=== PATIENT | male | born 1970 | race Caucasian/White ===

== ENCOUNTER 2018-10-30 14:30 | Inpatient (IN) | payer SELFPAY ==
[2018-10-30 14:57] LABS: BASOPHILS % (AUTO) 2.7 % (0.0-5.0); EOSINOPHILS % (AUTO) 0.6 % (0.0-8.0); LYMPHOCYTES % (AUTO) 39.2 % (21.0-51.0); MEAN CORPUSCULAR HEMOGLOBIN 35.1 pg (27.0-33.0); MEAN CORPUSCULAR HGB CONC 34.9 g/dL (32.0-36.0); MEAN CORPUSCULAR VOLUME 100.7 fL (79-99); MONOCYTES % (AUTO) 9.6 % (3.0-13.0); NEUTROPHILS % (AUTO) 47.9 % (40.0-77.0); PLATELET COUNT (AUTO) 150 K/uL (130-400); RED BLOOD CELL COUNT(AUTO) 3.97 MIL/uL (4.50-6.20); RED CELL DISTRIBUTION WIDTH 13.7 % (11.0-15.5); WHITE BLOOD COUNT (AUTO) 4.2 K/uL (4.8-10.8)
[2018-10-30] MEDS ORDERED: ONDANSETRON HCL 4 MG/2 ML VIAL ONE ×2 (15:03→16:00)
[2018-10-30 15:06] LABS: CREATININE 1.1 mg/dL (0.5-1.5); POTASSIUM 4.4 mmol/L (3.5-5.1)
[2018-10-30 15:11] LABS: ALBUMIN 4.2 g/dL (3.5-5.0); BILIRUBIN,TOTAL 1.7 mg/dL (0.2-1.0); TOTAL PROTEIN, SERUM 8.2 g/dL (6.0-8.3)
[2018-10-30] MEDS ORDERED: SODIUM CHLORIDE 0.9% 1000ML 2,000 ML IV ONE (16:00)
[2018-10-30] MEDS ORDERED: THIAMINE HCL 100 MG/ML 2ML VIAL ONE (16:00)
[2018-10-30] MEDS ORDERED: LORAZEPAM 2 MG/ML 1 ML VIAL ONE ×3 (16:01→20:49)
[2018-10-30] MEDS ORDERED: M.V.I. IV [ADULT] 10 ML VIAL IV ONE (16:02)
[2018-10-30] MEDS ORDERED: FOLIC ACID 5 MG/ML 10 ML VIAL ONE (16:02)
[2018-10-30 16:08] LABS: MAGNESIUM 0.9 mg/dL (1.80-2.40)
[2018-10-30] MEDS ORDERED: MAGNESIUM 2GM PREMIX 50ML 50 ML IV ONE (16:45)
[2018-10-30] MEDS ORDERED: KETOROLAC TROMETHAMINE 30MG/ML ONE (16:58)
[2018-10-30] MEDS ORDERED: ONDANSETRON HCL 4 MG/2 ML VIAL IV PRN (18:00)
[2018-10-30] MEDS: LEVOFLOXACIN 500 MG/D5W 100 ML 100 ML IV SCH (18:00)
[2018-10-30] MEDS ORDERED: ACETAMINOPHEN 325 MG TAB PO PRN (18:00)
[2018-10-30] MEDS ORDERED: SODIUM CHLORIDE 0.9% 1000ML 1,000 ML IV ONE (20:48)
[2018-10-30] MEDS ORDERED: CHLORDIAZEPOXIDE HCL 25 MG CAP ONE (20:49)
[2018-10-30] MEDS ORDERED: LEVOFLOXACIN 500 MG/D5W 100 ML 100 ML ONE (20:49)
[2018-10-30] MEDS ORDERED: FAMOTIDINE/PF 20 MG/2 ML VIAL IV ONE (20:50)
[2018-10-30] MEDS: FAMOTIDINE/PF 20 MG/2 ML VIAL IV SCH (21:00)
[2018-10-30] MEDS ORDERED: CHLORDIAZEPOXIDE HCL 25 MG CAP PO ONE (21:00)
[2018-10-30] MEDS ORDERED: PRIM50TA29 PO (23:07)
[2018-10-30 23:12] VITALS: BP 145/115
[2018-10-30] MEDS ORDERED: PROM25TA7 PO (23:14)
[2018-10-30] MEDS ORDERED: LISI-613 PO (23:14)
[2018-10-30] MEDS ORDERED: OMEP40CA37 PO (23:14)
[2018-10-30] MEDS ORDERED: IBUP-2077 PO (23:14)
[2018-10-30] MEDS ORDERED: METO50TA18 PO (23:14)
[2018-10-31] MEDS: KETOROLAC TROMETHAMINE 30MG/ML IV PRN ×4 (00:38→23:36)
[2018-10-31] MEDS ORDERED: PROMETHAZINE HCL 25 MG TABLET PO PRN (01:15)
[2018-10-31] MEDS ORDERED: DIAZEPAM 5 MG TABLET ONE (01:43)
[2018-10-31] MEDS: SODIUM CHLORIDE 0.9% 1000ML 1,000 ML IV SCH ×3 (01:50→23:27)
[2018-10-31 05:05] VITALS: BP 149/92
[2018-10-31 05:28] LABS: HEMATOCRIT 34.6 % (42-54); MEAN CORPUSCULAR HEMOGLOBIN 35.1 pg (27.0-33.0); MEAN CORPUSCULAR HGB CONC 34.4 g/dL (32.0-36.0); MEAN CORPUSCULAR VOLUME 102.1 fL (79-99); NUCLEATED RED BLOOD CELLS 0.1 % (0.0-0.19); PLATELET COUNT (AUTO) 93 K/uL (130-400); RED BLOOD CELL COUNT(AUTO) 3.39 MIL/uL (4.50-6.20); RED CELL DISTRIBUTION WIDTH 13.7 % (11.0-15.5)
[2018-10-31 05:29] LABS: CREATININE 1.6 mg/dL (0.5-1.5); POTASSIUM 4.7 mmol/L (3.5-5.1)
[2018-10-31 08:00] VITALS: BP 163/124
[2018-10-31] MEDS: FAMOTIDINE/PF 20 MG/2 ML VIAL IV SCH ×2 (09:10→21:52)
[2018-10-31] MEDS: CHLORDIAZEPOXIDE HCL 25 MG CAP PO SCH ×3 (09:10→21:52)
[2018-10-31] MEDS: DIAZEPAM 5 MG TABLET PO SCH ×3 (09:10→21:53)
[2018-10-31] MEDS: LORAZEPAM 2 MG/ML 1 ML VIAL IVP PRN ×4 (09:10→23:29)
[2018-10-31] MEDS: METOPROLOL TARTRATE 50 MG TAB PO SCH ×2 (09:10→21:53)
[2018-10-31] MEDS: LISINOPRIL 20 MG TABLET PO SCH (09:10)
[2018-10-31] MEDS: PANTOPRAZOLE SODIUM 40 MG TABLET.DR PO SCH (09:11)
[2018-10-31] MEDS: M.V.I. IV [ADULT] 10 ML, FOLIC ACID 1 MG, THIAMINE HCL 100 MG in SODIUM CHLORIDE 0.9% 1... IV SCH (10:10)
[2018-10-31 12:00] VITALS: BP 153/108
[2018-10-31] MEDS ORDERED: MAGNESIUM 2GM PREMIX 50ML 50 ML IV SCH (13:45)
--- NOTE | 2018-10-31 14:49 | NUR ---
YONI VALLEJO DONE ALONE AAOX3, IN WITHDRAWAL FOR HEAVY ALCOHOL USE; EMPLOYED , ANXIOUS TO KEEP JOB- INDEPENDENT, NO DME NO HH NO PROVIDER; WILL FOLLOW NEEDED Addendum: 10/31/18 at 1458 by SAUL SUAREZ RN CM Amended: Links added.
[2018-10-31 16:00] VITALS: BP 161/101
[2018-10-31] MEDS: LEVOFLOXACIN 500 MG/D5W 100 ML 100 ML IV SCH (17:35)
[2018-10-31 20:00] VITALS: BP 152/86
[2018-10-31] MEDS: PRIMIDONE 50 MG TAB PO SCH (21:52)
[2018-11-01] VITALS (7 sets, daily range): BP systolic 126–167; BP diastolic 82–111
[2018-11-01] MEDS ORDERED: CLONIDINE HCL 0.1 MG TABLET PO PRN ×3 (00:15→04:45)
--- NOTE | 2018-11-01 00:15 | NUR ---
B/P 152/109 & REPEAT 165/106, PULSE 80, [facility] WAS CALLED AND ORDER GIVEN FOR CLONIDINE Q6HRS PRN. PATIENT CONTINUES WITH BODY TREMORS HE IS GOING THROUGH ALCOHOL WITHDRAWAL, BUT IS AAOX3 AND CALM, COOPERATIVE WITH STAFF. MILD DIAPHORESIS, BUT AFEBRILE.
[2018-11-01] MEDS ORDERED: CLONIDINE HCL 0.1 MG TABLET ONE (00:16)
--- NOTE | 2018-11-01 01:45 | NUR ---
BLOOD PRESSURE DOWN TO 138/86, PULSE 76 AFTER CLONIDINE ADMINISTRATION. MED EFFECTIVE.
--- NOTE | 2018-11-01 03:15 | NUR ---
PATIENT VERY DIAPHORETIC AND WITH NOTED SHORT-LASTING CONFUSION/DIRORIENTATION, ASKING WHERE HE WAS AND WHAT WAS HE DOING HERE. HE WAS RE-ORIENTED. HE WAS ALSO NOTED TO HAVE INCREASED BODY TREMORS HE CONTINUES GOING THROUGH ALCOHOL WITHDRAWAL. WITHDRAWAL ASSESSMENT SCORE 23, ATIVAN IV GIVEN.
[2018-11-01] MEDS: LORAZEPAM 2 MG/ML 1 ML VIAL IVP PRN ×3 (03:16→22:04)
--- NOTE | 2018-11-01 04:20 | NUR ---
B/P LEFT-163/115 & RIGHT-158/111, PULSE MID 70'S. [facility] WAS CALLED AGAIN AND ORDER GIVEN TO CHANGE CLONIDINE TO Q4HRS PRN.
[2018-11-01] MEDS: KETOROLAC TROMETHAMINE 30MG/ML IV PRN (06:47)
[2018-11-01 07:42] LABS: HEMATOCRIT 33.1 % (42-54); MEAN CORPUSCULAR HEMOGLOBIN 34.8 pg (27.0-33.0); MEAN CORPUSCULAR HGB CONC 34.4 g/dL (32.0-36.0); MEAN CORPUSCULAR VOLUME 101.3 fL (79-99); NUCLEATED RED BLOOD CELLS 0.1 % (0.0-0.19); PLATELET COUNT (AUTO) 70 K/uL (130-400); RED BLOOD CELL COUNT(AUTO) 3.26 MIL/uL (4.50-6.20); RED CELL DISTRIBUTION WIDTH 13.8 % (11.0-15.5); WHITE BLOOD COUNT (AUTO) 4.5 K/uL (4.8-10.8)
[2018-11-01 07:48] LABS: CREATININE 1.5 mg/dL (0.5-1.5); MAGNESIUM 1.1 mg/dL (1.80-2.40); POTASSIUM 4.5 mmol/L (3.5-5.1)
--- NOTE | 2018-11-01 08:00 | NUR ---
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 D FOR ETOH. URING IA YESTERDAY PT STATES HAS GOOD SUPPORT THROUGH [employer] AND KNOWS HOW TO ACCESS SELF HELP AND RECOVERY GROUPS IN THE AREA. WILL DOCUEMNT, BUT NO REVISIT FOR THIS THIS RES
[2018-11-01] MEDS ORDERED: AMLODIPINE BESYLATE 5 MG TAB PO SCH (09:00)
[2018-11-01] MEDS: AMLODIPINE BESYLATE 5 MG TAB PO SCH (09:21)
[2018-11-01] MEDS: PANTOPRAZOLE SODIUM 40 MG TABLET.DR PO SCH (09:22)
[2018-11-01] MEDS: DIAZEPAM 5 MG TABLET PO SCH ×3 (09:23→21:05)
[2018-11-01] MEDS: FAMOTIDINE/PF 20 MG/2 ML VIAL IV SCH ×2 (09:24→21:03)
[2018-11-01] MEDS: METOPROLOL TARTRATE 50 MG TAB PO SCH ×2 (09:24→21:04)
[2018-11-01] MEDS: LISINOPRIL 20 MG TABLET PO SCH (09:24)
[2018-11-01] MEDS ORDERED: CHLORDIAZEPOXIDE HCL 25 MG CAP ONE (09:41)
[2018-11-01] MEDS: M.V.I. IV [ADULT] 10 ML, FOLIC ACID 1 MG, THIAMINE HCL 100 MG in SODIUM CHLORIDE 0.9% 1... IV SCH (09:46)
[2018-11-01] MEDS ORDERED: GADODIAMIDE 5 MMOL/10 ML VIAL 5 MMOL/10 ML ML IV ONE (13:00)
--- NOTE | 2018-11-01 14:00 | NUR ---
PER DR SCHWARZ, NOTIFY OF ANY ABNORMAL FINDINGS OF MRI MRA, AND TO TAPER SLOW ON BENZO.
[2018-11-01] MEDS: CHLORDIAZEPOXIDE HCL 25 MG CAP PO SCH ×2 (14:27→21:04)
[2018-11-01] MEDS: LEVOFLOXACIN 500 MG/D5W 100 ML 100 ML IV SCH (16:06)
--- NOTE | 2018-11-01 16:41 | NUR ---
Nutrition intervention: Nutrition notification for alcohol abuse. Pt admitted for etoh withdraws, seizures. Currently on regular diet with improved po intake. Pt states he feels much better and plans to keep alcohol free for the better of his health and his marriage. Pt with no nutritional questions or concerns at this time. Pt receiving Thiamin and Folic acid via IV multivitamin. Please consult RD if additional nutrition concerns arise. LBM 10/31. Alb 4.2.
[2018-11-01] MEDS: ACETAMINOPHEN-CODEINE 300/30MG TAB PO PRN ×2 (17:06→23:08)
[2018-11-01] MEDS: PRIMIDONE 50 MG TAB PO SCH (21:05)
[2018-11-02] MEDS: LORAZEPAM 2 MG/ML 1 ML VIAL IVP PRN ×2 (02:14→10:53)
[2018-11-02 03:00] VITALS: BP 144/94
--- NOTE | 2018-11-02 03:00 | NUR ---
Med effect: Ativan Checked pt noted sleeping at this time,snoring with even breathing.
[2018-11-02] MEDS: ACETAMINOPHEN-CODEINE 300/30MG TAB PO PRN (06:24)
[2018-11-02 08:00] VITALS: BP 126/79
[2018-11-02] MEDS: M.V.I. IV [ADULT] 10 ML, FOLIC ACID 1 MG, THIAMINE HCL 100 MG in SODIUM CHLORIDE 0.9% 1... IV SCH (09:00)
[2018-11-02] MEDS: CHLORDIAZEPOXIDE HCL 25 MG CAP PO SCH (10:26)
[2018-11-02] MEDS: DIAZEPAM 5 MG TABLET PO SCH (10:26)
[2018-11-02] MEDS: PANTOPRAZOLE SODIUM 40 MG TABLET.DR PO SCH (10:26)
[2018-11-02] MEDS: METOPROLOL TARTRATE 50 MG TAB PO SCH (10:26)
[2018-11-02] MEDS: LISINOPRIL 20 MG TABLET PO SCH (10:26)
[2018-11-02] MEDS: AMLODIPINE BESYLATE 5 MG TAB PO SCH (10:27)
[2018-11-02] MEDS: FAMOTIDINE/PF 20 MG/2 ML VIAL IV SCH (10:29)
[2018-11-02] MEDS: KETOROLAC TROMETHAMINE 30MG/ML IV PRN (10:54)
[2018-11-02 12:22] VITALS: BP 150/109
[2018-11-02] MEDS ORDERED: DIAZEPAM 5 MG TABLET PO PRN (15:15)
== END 2018-11-02 17:25 | disposition home or self-care (01) | DRG 101 ==
LOC: EDH 14:30 → EDHIP 14:31 → OBSVTOIN 14:31 → EDH 16:19 → 3CH 22:13
PROVIDERS: ADMIT Hospitalist; ATTEND Hospitalist
DX: R56.9 Unspecified convulsions (principal); F10.239 Alcohol dependence with withdrawal, unspecified; R74.0 Nonspecific elevation of levels of transaminase and lactic acid dehydrogenase [LDH]; I10 Essential (primary) hypertension; Z23 Encounter for immunization
CPT/HCPCS: 36415; 70450; 70544; 70551; 76705; 80048; 80053; 83735; 85025; 85027; 93005; A9579; G0378; G0480; J1885; J1956; J2060; J2405; J3411; J3475; J3490; J7030

== ENCOUNTER 2018-11-20 11:23 | Emergency (ER) | payer OTHER ==
[~2018-11-20 11:23] MED LIST: IBUP-2077 PO; LISI-613 PO; METO50TA18 PO; OMEP40CA37 PO; PRIM50TA29 PO; PROM25TA7 PO
[2018-11-20] MEDS ORDERED: DiphenhydrAMINE HCL 50 MG/ML VIAL ONE (12:17)
[2018-11-20] MEDS ORDERED: SODIUM CHLORIDE 0.9% 1000ML 1,000 ML IV ONE (12:27)
[2018-11-20] MEDS ORDERED: THIAMINE HCL 100 MG/ML 2ML VIAL ONE (12:27)
[2018-11-20] MEDS ORDERED: M.V.I. IV [ADULT] 10 ML VIAL IV ONE (12:28)
[2018-11-20] MEDS ORDERED: CLONIDINE HCL 0.1 MG TABLET ONE (13:29)
== END 2018-11-20 13:55 | disposition home or self-care (01) ==
LOC: EDH 11:23
DX: F10.230 Alcohol dependence with withdrawal, uncomplicated (principal); I10 Essential (primary) hypertension; K21.9 Gastro-esophageal reflux disease without esophagitis; Y90.9 Presence of alcohol in blood, level not specified; Z87.891 Personal history of nicotine dependence
CPT/HCPCS: 96365; 96375; 99283; J1200; J3411; J7030

== ENCOUNTER 2020-06-30 02:11 | Inpatient (IN) | payer SELFPAY ==
[~2020-06-30] VITALS: Ht 177.8 cm; Wt 105.1 kg
[~2020-06-30 02:11] MED LIST changes: +OMEP40CA13 PO; -OMEP40CA37 PO
[2020-06-30] MEDS ORDERED: ONDANSETRON HCL 4 MG/2 ML VIAL ONE ×4 (02:33→13:46)
[2020-06-30] MEDS ORDERED: LORAZEPAM 2 MG/ML 1 ML VIAL ONE ×8 (02:33→22:23)
[2020-06-30] MEDS ORDERED: CHLORDIAZEPOXIDE HCL 25 MG CAP ONE ×5 (02:33→23:21)
[2020-06-30 02:37] LABS: BASOPHILS % (AUTO) 1.1 % (0.0-5.0); EOSINOPHILS % (AUTO) 0.7 % (0.0-8.0); HEMATOCRIT 42.8 % (42-54); LYMPHOCYTES % (AUTO) 25.2 % (21.0-51.0); MEAN CORPUSCULAR HEMOGLOBIN 28.8 pg (27.0-33.0); MEAN CORPUSCULAR HGB CONC 33.2 g/dL (32.0-36.0); MEAN CORPUSCULAR VOLUME 86.8 fL (79-99); MONOCYTES % (AUTO) 12.4 % (3.0-13.0); NEUTROPHILS % (AUTO) 60.3 % (40.0-77.0); PLATELET COUNT (AUTO) 171 K/uL (130-400); RED BLOOD CELL COUNT(AUTO) 4.93 MIL/uL (4.50-6.20); WHITE BLOOD COUNT (AUTO) 6.2 K/uL (4.8-10.8)
[2020-06-30 02:48] LABS: CREATININE 1.4 mg/dL (0.5-1.5); POTASSIUM 3.8 mmol/L (3.5-5.1)
[2020-06-30 02:50] LABS: INR 0.96 (0.85-1.15); PARTIAL THROMBOPLASTIN TIME 21.9 SEC (26.3-35.5); PROTHROMBIN TIME 10.4 SEC (9.6-11.6)
[2020-06-30 02:52] LABS: TOTAL PROTEIN, SERUM 8.2 g/dL (6.0-8.3)
[2020-06-30 04:05] LABS: APPEARANCE,URINE Clear (CLEAR); BILIRUBIN,URINE Negative (NEGATIVE); COLOR,URINE Dark Yellow (YELLOW); GLUCOSE, URINE (UA) Negative (NEGATIVE); KETONES,URINE Negative (NEGATIVE); LEUKOCYTE ESTERASE ,URINE Trace (NEGATIVE); NITRATE,URINE Negative (NEGATIVE); OCCULT BLOOD,URINE Negative (NEGATIVE); PH,URINE 7.5 (5.0-8.0); PROTEIN,URINE POS 2+ mg/dL (NEGATIVE)
[2020-06-30 04:18] LABS: BACTERIA,URINE None Seen /HPF (None Seen); MUCUS,URINE Moderate LPF (None Seen); RBC,URINE 0-1 /HPF (0-1); SQUAMOUS EPITHELIAL CELL,UR Few /HPF (0-2)
[2020-06-30] MEDS ORDERED: ONDANSETRON HCL 4 MG/2 ML VIAL IV PRN (05:30)
[2020-06-30] MEDS ORDERED: ACETAMINOPHEN 325 MG TAB PO PRN ×2 (05:30)
[2020-06-30] MEDS ORDERED: THIAMINE HCL 100 MG/ML 2ML VIAL ONE (05:49)
[2020-06-30] MEDS ORDERED: M.V.I. IV [ADULT] 10 ML VIAL IV ONE ×2 (05:50→05:54)
[2020-06-30] MEDS ORDERED: FOLIC ACID 5 MG/ML 10 ML VIAL ONE (05:52)
[2020-06-30] MEDS ORDERED: PROMETHAZINE HCL 25 MG TABLET ONE (07:51)
[2020-06-30] MEDS ORDERED: FAMOTIDINE 20MG TAB 20 MG TAB PO SCH (09:00)
[2020-06-30] MEDS ORDERED: M.V.I. IV [ADULT] 10 ML, FOLIC ACID 1 MG, THIAMINE HCL 100 MG in SODIUM CHLORIDE 0.9% 1... IV SCH (09:00)
[2020-06-30] MEDS ORDERED: FAMOTIDINE 20MG TAB 20 MG TAB ONE (09:47)
--- NOTE | 2020-06-30 13:00 | NUR ---
patient admitt for ETOH withdrawal- discussed dcp at bedside w/patient States has been a heavy drinker about 10 years,m but has been sober for>1.5 years, recently -heavy binge ++for last two weeks, can't drink anymore; patient is shaking, sweaty and appear apprehensive, states wants to dc to home when safe to do so-has good support system to help with sobriety. States self employed, indpendent, active, lives with spouse who is also supportive, dcp to home, SW alerted to follow up when withdrawal symptoms are better managed. Addendum: 06/30/20 at 2136 by SAUL SUAREZ RN Amended: Links added.
[2020-06-30] MEDS ORDERED: LISINOPRIL 5 MG TABLET ONE (15:04)
[2020-06-30] MEDS ORDERED: METOPROLOL TARTRATE 50 MG TAB ONE (15:04)
[2020-06-30] MEDS ORDERED: CHLORDIAZEPOXIDE HCL 25 MG CAP PO PRN (17:00)
[2020-06-30] MEDS ORDERED: LORAZEPAM 2 MG/ML 1 ML VIAL IVP PRN (17:00)
[2020-06-30] MEDS ORDERED: PHARMACY COMMUNICATION MISC PRN (17:00)
[2020-06-30] MEDS ORDERED: METOPROLOL TARTRATE 50 MG TAB PO SCH (21:00)
[2020-06-30] MEDS ORDERED: METOPROLOL TARTRATE 25 MG TAB ONE (23:20)
[2020-07-01 01:16] VITALS: BP 166/112
[2020-07-01] MEDS ORDERED: HYDRALAZINE HCL 20 MG/ML VIAL ONE (01:18)
--- NOTE | 2020-07-01 01:29 | NUR ---
AMA PATIENT AWAKE AND ALERT. VOICES ALL NEEDS. DENIES THE NEED TO BE AT THE HOSPITAL. SARAH FORMED SIGNED. SECURITY HERE TO ESCORT PATIENT TO ER DEPARTMENT. SPOUSE AND MD AWARE. Addendum: 07/01/20 at [address]RE[address]ER RN RN Amended: Links added.
[2020-07-01] MEDS ORDERED: HYDRALAZINE HCL 20 MG/ML VIAL IV PRN (01:30)
[2020-07-01] MEDS ORDERED: LISINOPRIL 20 MG TABLET PO SCH (09:00)
== END 2020-07-01 01:30 | disposition left against medical advice (07) | DRG 641 ==
LOC: EDH 02:11 → EDHIP 02:12 → 3BH 23:54
PROVIDERS: ADMIT Internal Medicine; ATTEND Internal Medicine
DX: E87.2 Acidosis (principal); F10.239 Alcohol dependence with withdrawal, unspecified; E86.0 Dehydration; R25.1 Tremor, unspecified; Y90.6 Blood alcohol level of 120-199 mg/100 ml; G40.909 Epilepsy, unspecified, not intractable, without status epilepticus; I10 Essential (primary) hypertension; K21.9 Gastro-esophageal reflux disease without esophagitis
CPT/HCPCS: 36415; 80053; 81001; 82550; 83605; 83690; 84484; 85025; 85610; 85730; 93005; G0378; J0360; J2060; J2405; J3411; J3490; J7030; Q0169

== ENCOUNTER 2020-09-26 21:41 | Inpatient (IN) | payer OTHER ==
[~2020-09-26] VITALS: Ht 177.8 cm; Wt 98.2 kg
[2020-09-26 21:57] LABS: BASOPHILS % (AUTO) 0.9 % (0.0-5.0); EOSINOPHILS % (AUTO) 4.5 % (0.0-8.0); HEMATOCRIT 43.1 % (42-54); LYMPHOCYTES % (AUTO) 48.5 % (21.0-51.0); MEAN CORPUSCULAR HEMOGLOBIN 28.4 pg (27.0-33.0); MEAN CORPUSCULAR HGB CONC 32.9 g/dL (32.0-36.0); MEAN CORPUSCULAR VOLUME 86.2 fL (79-99); NEUTROPHILS % (AUTO) 36.7 % (40.0-77.0); PLATELET COUNT (AUTO) 369 K/uL (130-400); RED CELL DISTRIBUTION WIDTH 16.5 % (11.0-15.5); WHITE BLOOD COUNT (AUTO) 7.8 K/uL (4.8-10.8)
[2020-09-26] MEDS ORDERED: LORAZEPAM 2 MG/ML 1 ML VIAL ONE (22:07)
[2020-09-26] MEDS ORDERED: THIAMINE HCL 100 MG/ML 2ML VIAL ONE (22:08)
[2020-09-26] MEDS ORDERED: M.V.I. IV [ADULT] 10 ML VIAL IV ONE (22:09)
[2020-09-26] MEDS ORDERED: FOLIC ACID 5 MG/ML 10 ML VIAL ONE (22:10)
[2020-09-26 22:13] LABS: INR 1.02 (0.85-1.15); PROTHROMBIN TIME 10.9 SEC (9.6-11.6)
[2020-09-26 22:14] LABS: PARTIAL THROMBOPLASTIN TIME 21.6 SEC (26.3-35.5)
[2020-09-26 22:17] LABS: CREATININE 1.4 mg/dL (0.5-1.5); POTASSIUM 3.8 mmol/L (3.5-5.1)
[2020-09-26 22:22] LABS: ALBUMIN 4.6 g/dL (3.5-5.0); BILIRUBIN,TOTAL 0.7 mg/dL (0.2-1.0); TOTAL PROTEIN, SERUM 8.9 g/dL (6.0-8.3)
[2020-09-26 23:37] LABS: APPEARANCE,URINE Clear (CLEAR); BILIRUBIN,URINE Negative (NEGATIVE); COLOR,URINE Yellow (YELLOW); GLUCOSE, URINE (UA) Negative (NEGATIVE); KETONES,URINE 40 mg/dL (NEGATIVE); LEUKOCYTE ESTERASE ,URINE Negative (NEGATIVE); NITRATE,URINE Negative (NEGATIVE); OCCULT BLOOD,URINE Trace (NEGATIVE); PH,URINE 5.5 (5.0-8.0); PROTEIN,URINE 300 mg/dL (NEGATIVE)
[2020-09-26 23:43] LABS: AMPHET/METH SCREEN,URINE NEGATIVE (NEGATIVE); BARBITURATE SCREEN, URINE NEGATIVE (NEGATIVE); BENZODIAZEPINES SCREEN,URINE NEGATIVE (NEGATIVE); CANNABINOID SCREEN,URINE POSITIVE (NEGATIVE); COCAINE SCREEN,URINE NEGATIVE (NEGATIVE); OPIATE SCREEN,URINE NEGATIVE (NEGATIVE); PHENCYCLIDINE SCREEN,URINE NEGATIVE (NEGATIVE)
[2020-09-26 23:56] LABS: BACTERIA,URINE None Seen /HPF (None Seen); RBC,URINE None Seen /HPF (0-1); SQUAMOUS EPITHELIAL CELL,UR Rare /HPF (0-2); WBC,URINE None Seen /HPF (0-1)
[2020-09-27] MEDS ORDERED: FAMOTIDINE/PF 20 MG/2 ML VIAL IV ONE ×2 (00:03→09:34)
[2020-09-27] MEDS ORDERED: LORAZEPAM 2 MG/ML 1 ML VIAL ONE ×4 (00:03→16:57)
[2020-09-27] MEDS ORDERED: ACETAMINOPHEN 325 MG TAB PO PRN ×2 (02:30)
[2020-09-27] MEDS ORDERED: ONDANSETRON HCL 4 MG/2 ML VIAL IV PRN (02:30)
[2020-09-27] MEDS ORDERED: CHLORDIAZEPOXIDE HCL 25 MG CAP PO PRN (02:30)
[2020-09-27] MEDS ORDERED: LORAZEPAM 2 MG/ML 1 ML VIAL IVP PRN (02:30)
[2020-09-27] MEDS: SODIUM CHLORIDE 0.9% 1000ML 1,000 ML IV SCH ×2 (05:40→20:57)
[2020-09-27] MEDS ORDERED: ONDANSETRON HCL 4 MG/2 ML VIAL ONE (07:46)
[2020-09-27] MEDS ORDERED: CHLORDIAZEPOXIDE HCL 25 MG CAP ONE ×2 (07:47→13:54)
[2020-09-27] MEDS: FAMOTIDINE/PF 20 MG/2 ML VIAL IV SCH ×2 (09:00→20:58)
[2020-09-27] MEDS ORDERED: M.V.I. IV [ADULT] 10 ML, FOLIC ACID 1 MG, THIAMINE HCL 100 MG in SODIUM CHLORIDE 0.9% 1... IV SCH (09:00)
[2020-09-27] MEDS ORDERED: THIAMINE HCL IV SCH (10:22)
[2020-09-27] MEDS ORDERED: SODIUM CHLORIDE 0.9% IV SCH (10:22)
[2020-09-27] MEDS ORDERED: FOLIC ACID IV SCH (10:22)
[2020-09-27] MEDS ORDERED: MULTIVITAMIN TABLET PO SCH (10:24)
[2020-09-27] MEDS: CHLORDIAZEPOXIDE HCL 25 MG CAP PO SCH ×3 (13:15→20:58)
[2020-09-27 17:57] VITALS: BP 156/115
[2020-09-27 20:07] VITALS: BP 141/103
[2020-09-27] MEDS ORDERED: METOPROLOL TARTRATE 25 MG TAB PO SCH (21:00)
--- NOTE | 2020-09-27 21:00 | NUR ---
MEDS SHIFT ASSESSMENT DONE, PLEASE REFER TO CHART. DUE MEDS ADMINISTERED, TOLERATED WELL. KEPT RESTED AND COMFORTABLE IN BED. CALL LIGHT WITHIN REACH. WILL MONITOR PT. Addendum: 09/28/20 at 0031 by NEPTALI BARRIOS RN RN Amended: Links added.
[2020-09-27] MEDS: LORAZEPAM 2 MG/ML 1 ML VIAL IVP PRN (21:35)
--- NOTE | 2020-09-27 21:35 | NUR ---
ATIVAN PT HAS INTERMITTENT JERKING AND SOME TREMORS. PT VERBALIZES A LOT OF ANXIETY. MEDICATED WITH ATIVAN IV. KEPT RESTED IN BED. WILL MONITOR CLOSELY.
[2020-09-27 23:27] VITALS: BP 163/121
--- NOTE | 2020-09-27 23:30 | NUR ---
SHOWER PT IS ALREADY IN THE RESTROOM AND VERBALIZES THAT HE WANTS TO TAKE A SHOWER. SALINE LOCKED PT FOR NOW. PCP IN TO ASSIST PT.
[2020-09-28] MEDS ORDERED: PROMETHAZINE HCL 25 MG TABLET PO PRN (00:15)
[2020-09-28] MEDS ORDERED: ACETAMINOPHEN EXTRA STRENGTH 500 MG TABLET PO PRN (00:15)
[2020-09-28] MEDS ORDERED: LORAZEPAM 2 MG/ML 1 ML VIAL IVP PRN ×2 (00:15)
[2020-09-28] MEDS ORDERED: ONDANSETRON HCL 4 MG/2 ML VIAL IV PRN (00:15)
[2020-09-28] MEDS ORDERED: CHLORDIAZEPOXIDE HCL 25 MG CAP PO PRN ×2 (00:15)
[2020-09-28] MEDS ORDERED: PHARMACY COMMUNICATION MISC PRN (00:15)
[2020-09-28] MEDS: SODIUM CHLORIDE 0.9% 1000ML 1,000 ML IV SCH (00:21)
[2020-09-28 00:23] VITALS: BP 147/100
[2020-09-28] MEDS: LORAZEPAM 2 MG/ML 1 ML VIAL IVP PRN ×2 (01:15→05:38)
--- NOTE | 2020-09-28 01:15 | NUR ---
ATIVAN PT STILL AWAKE AND HAVING UNINTENTIONAL TREMORS AND OCCASIONAL UNINTENTIONAL JERKING MOVEMENTS. STILL FEELING ANXIOUS AND WANTING TO SLEEP. MEDICATED WITH ATIVAN IV. ENCOURAGED TO REST AND SLEEP. WILL RE-ASSESS PT.
[2020-09-28 04:35] VITALS: BP 149/110
--- NOTE | 2020-09-28 05:38 | NUR ---
MEDS PCP IN AND AWAKENED PT TO CHECK V/S, NOTED ELEVATED QZ=096/110, HR=71. BIOPSYCHOLOGIST IN TO DRAW BLOOD BUT FAILED AND REHAB AIDE WAS MADE AWARE THAT ANOTHER BIOPSYCHOLOGIST WILL BE SENT TO DRAW BLOOD. PT VERBALIZES NEED FOR ATIVAN HE IS HAVING TREMORS AND FEELING ANXIOUS. MEDICATED WITH ATIVAN IV. KEPT RESTED AND COMFORTABLE IN BED. WILL RE-ASSESS PT.
--- NOTE | 2020-09-28 05:58 | NUR ---
FAILED SECOND SMALL PIECE CUTTER UNABLE TO DRAW BLOOD FOR LAB. AM SHIFT WILL TRY TO DRAW LATER.
--- NOTE | 2020-09-28 06:35 | NUR ---
D/C PT VERBALIZES THAT HE WILL NEED TO GO AMA IF NOT DISCHARGED BY MD THIS AM. EXPLAINED THAT MD WILL BE MAKING ROUNDS THIS AM AND HE IS STILL BEING HYDRATED. PT VERBALIZES THAT HE HAS AN IMPORTANT MEETING THAT HE NEEDS TO GO TO THIS AM. PT STATED HE WILL TRY TO WAIT FOR THE DOCTORS AT THIS TIME.
[2020-09-28 08:03] VITALS: BP 111/68
[2020-09-28 08:53] LABS: BASOPHILS % (AUTO) 1.2 % (0.0-5.0); EOSINOPHILS % (AUTO) 1.4 % (0.0-8.0); HEMATOCRIT 40.1 % (42-54); LYMPHOCYTES % (AUTO) 37.7 % (21.0-51.0); MEAN CORPUSCULAR HEMOGLOBIN 28.7 pg (27.0-33.0); MEAN CORPUSCULAR HGB CONC 32.2 g/dL (32.0-36.0); MEAN CORPUSCULAR VOLUME 89.3 fL (79-99); MONOCYTES % (AUTO) 12.6 % (3.0-13.0); NEUTROPHILS % (AUTO) 46.9 % (40.0-77.0); PLATELET COUNT (AUTO) 252 K/uL (130-400); RED BLOOD CELL COUNT(AUTO) 4.49 MIL/uL (4.50-6.20); RED CELL DISTRIBUTION WIDTH 16.6 % (11.0-15.5); WHITE BLOOD COUNT (AUTO) 5.8 K/uL (4.8-10.8)
[2020-09-28] MEDS ORDERED: Vitamin B Complex/Vit C/Folic Acid PO SCH (09:00)
[2020-09-28] MEDS ORDERED: THIAMINE HCL 100 MG TABLET PO SCH (09:00)
[2020-09-28 09:05] LABS: HEMOGLOBIN A1C 5.7 % (4.0-6.0)
--- NOTE | 2020-09-28 09:08 | NUR ---
PT CHOSE TO LEAVE AMA PER DR ALAS. PT IV REMOVED W/O DIFFICULTY OR COMPLICATION, PRESCRIPTIONS PROVIDED BY DR ALAS. LIBRIUM 25MG, FOLIC ACID 1MG, THIAMINE 100MG AND B-12 1000MCG. PT DISMISSED BY W/C IN GOOD CONDITION ACCOMPANIED BY STAFF
[2020-09-28 09:13] LABS: ALBUMIN 4.2 g/dL (3.5-5.0); BILIRUBIN,TOTAL 2.2 mg/dL (0.2-1.0); MAGNESIUM 1.4 mg/dL (1.80-2.40); POTASSIUM 3.7 mmol/L (3.5-5.1); TOTAL PROTEIN, SERUM 8.2 g/dL (6.0-8.3)
--- NOTE | 2020-09-28 09:34 | NUR ---
CM NOTE/AMA IA NOT COMPLETED D/T PATIENT LEFT AMA. SEE NURSING NOTES. Addendum: 09/28/20 at [address]RE[address]ER RN CM Amended: Links added.
== END 2020-09-28 09:00 | disposition left against medical advice (07) | DRG 638 ==
LOC: EDH 21:41 → EDHIP 21:42 → 3CH 09-27 17:34
PROVIDERS: ADMIT Internal Medicine; ATTEND Internal Medicine
DX: E11.65 Type 2 diabetes mellitus with hyperglycemia (principal); F10.130 Alcohol abuse with withdrawal, uncomplicated; G40.909 Epilepsy, unspecified, not intractable, without status epilepticus; I10 Essential (primary) hypertension; K21.9 Gastro-esophageal reflux disease without esophagitis; M79.7 Fibromyalgia; Z96.643 Presence of artificial hip joint, bilateral; Z53.29 Procedure and treatment not carried out because of patient's decision for other reasons; F10.120 Alcohol abuse with intoxication, uncomplicated; Y90.8 Blood alcohol level of 240 mg/100 ml or more; Z79.899 Other long term (current) drug therapy
CPT/HCPCS: 36415; 71045; 80053; 80305; 81001; 82140; 82550; 83036; 83735; 84484; 85025; 85610; 85730; 93005; G0378; J2060; J2405; J3411; J3490; J7030

== ENCOUNTER 2021-01-12 20:02 | Inpatient (IN) | payer SELFPAY ==
[~2021-01-12] VITALS: Ht 177.8 cm; Wt 108.4 kg
[~2021-01-12 20:02] MED LIST changes: -IBUP-2077 PO; -LISI-613 PO; +LISI20TA24 PO; -OMEP40CA13 PO; +OMEP40CA21 PO; -PRIM50TA29 PO; -PROM25TA7 PO
[2021-01-12] MEDS ORDERED: LORAZEPAM 2 MG/ML 1 ML VIAL ONE ×3 (20:05→22:38)
[2021-01-12 20:51] LABS: BASOPHILS % (AUTO) 0.8 % (0.0-5.0); HEMATOCRIT 39.9 % (42-54); LYMPHOCYTES % (AUTO) 17.1 % (21.0-51.0); MEAN CORPUSCULAR HEMOGLOBIN 28.6 pg (27.0-33.0); MEAN CORPUSCULAR HGB CONC 33.1 g/dL (32.0-36.0); MEAN CORPUSCULAR VOLUME 86.4 fL (79-99); MONOCYTES % (AUTO) 15.3 % (3.0-13.0); NEUTROPHILS % (AUTO) 65.5 % (40.0-77.0); PLATELET COUNT (AUTO) 68 K/uL (130-400); RED BLOOD CELL COUNT(AUTO) 4.62 MIL/uL (4.50-6.20); RED CELL DISTRIBUTION WIDTH 20.7 % (11.0-15.5)
[2021-01-12 21:02] LABS: CARBON DIOXIDE 26 mmol/L (21-32); CHLORIDE 93 mmol/L (101-111); CREATININE 1.9 mg/dL (0.5-1.5); GLOMERULAR FILTR. RATE CALC 40 mL/min (>60); GLUCOSE,RANDOM 129 mg/dL (70-105); SODIUM SERUM 138 mmol/L (136-145); UREA NITROGEN, BLOOD 14 mg/dL (7-18)
[2021-01-12 21:13] LABS: ALANINE AMINOTRANSFERASE 140 U/L (12-78); ALBUMIN 4.3 g/dL (3.5-5.0); ALCOHOL, BLOOD < 3 mg/dL (0-10); ASPARTATE AMINOTRANSFERASE 178 U/L (10-37); BILIRUBIN,TOTAL 2.7 mg/dL (0.2-1.0); CREATINE KINASE, TOTAL 240 U/L (21-232); TOTAL PROTEIN, SERUM 8.5 g/dL (6.0-8.3)
[2021-01-12] MEDS ORDERED: ONDANSETRON 4MG INJ ONE (21:17)
[2021-01-12] MEDS ORDERED: THIAMINE HCL 100 MG/ML 2ML VIAL ONE (22:16)
[2021-01-12] MEDS ORDERED: FOLIC ACID 5 MG/ML VIAL ONE (22:18)
[2021-01-12] MEDS ORDERED: M.V.I. IV [ADULT] 10 ML VIAL IV ONE (22:18)
[2021-01-12 23:53] LABS: APPEARANCE,URINE Clear (CLEAR); BILIRUBIN,URINE Small (NEGATIVE); COLOR,URINE Dark Yellow (YELLOW); GLUCOSE, URINE (UA) TRACE mg/dL (NEGATIVE); KETONES,URINE Trace mg/dL (NEGATIVE); LEUKOCYTE ESTERASE ,URINE Trace (NEGATIVE); NITRATE,URINE Negative (NEGATIVE); OCCULT BLOOD,URINE Negative (NEGATIVE); PROTEIN,URINE POS 2+ mg/dL (NEGATIVE)
[2021-01-13] LABS: AMPHET/METH SCREEN,URINE NEGATIVE (NEGATIVE); BARBITURATE SCREEN, URINE NEGATIVE (NEGATIVE); BENZODIAZEPINES SCREEN,URINE NEGATIVE (NEGATIVE); CANNABINOID SCREEN,URINE NEGATIVE (NEGATIVE); COCAINE SCREEN,URINE NEGATIVE (NEGATIVE); OPIATE SCREEN,URINE NEGATIVE (NEGATIVE); PHENCYCLIDINE SCREEN,URINE NEGATIVE (NEGATIVE)
[2021-01-13 00:02] LABS: RBC,URINE None Seen /HPF (0-1); WBC,URINE 0-1 /HPF (0-1)
[2021-01-13 00:03] LABS: BACTERIA,URINE None Seen /HPF (None Seen); SQUAMOUS EPITHELIAL CELL,UR Rare /HPF (0-2)
[2021-01-13] MEDS ORDERED: CHLORDIAZEPOXIDE HCL 25 MG CAP PO PRN (00:30)
[2021-01-13] MEDS ORDERED: PHARMACY COMMUNICATION MISC PRN (00:30)
[2021-01-13] MEDS ORDERED: ONDANSETRON 4MG INJ IV PRN (00:30)
[2021-01-13] MEDS ORDERED: ACETAMINOPHEN 325 MG TAB PO PRN ×2 (00:30)
[2021-01-13] MEDS ORDERED: THIAMINE HCL 100 MG, FOLIC ACID 1 MG, M.V.I. IV [ADULT] 10 ML in 0.9%NACL 1000ML 1,000 ML IV SCH (00:30)
[2021-01-13 01:25] LABS: HEMOGLOBIN A1C 5.8 % (4.0-6.0)
[2021-01-13] MEDS ORDERED: LORAZEPAM 2 MG/ML 1 ML VIAL ONE ×2 (02:56→05:03)
[2021-01-13] MEDS ORDERED: METOPROLOL TARTRATE 25 MG TAB PO SCH (03:00)
[2021-01-13] MEDS ORDERED: ONDANSETRON 4MG INJ ONE (03:03)
[2021-01-13 05:40] VITALS: BP 125/101
[2021-01-13 07:30] LABS: MAGNESIUM 0.6 mg/dL (1.80-2.40); PHOSPHORUS 2.4 mg/dL (2.5-4.9)
[2021-01-13 08:00] VITALS: BP 167/110
[2021-01-13] MEDS ORDERED: FAMOTIDINE 20MG VIAL IV SCH (09:00)
[2021-01-13] MEDS ORDERED: MULTIVITAMIN TABLET PO SCH (09:00)
[2021-01-13] MEDS ORDERED: FOLIC ACID 1 MG TABLET PO SCH (09:00)
[2021-01-13] MEDS ORDERED: LISINOPRIL 20 MG TABLET PO SCH (09:00)
[2021-01-13] MEDS ORDERED: PANTOPRAZOLE 40 MG TAB DR PO SCH (09:00)
[2021-01-13] MEDS ORDERED: THIAMINE HCL 100 MG/ML 2ML VIAL IM SCH (09:00)
[2021-01-13] MEDS: METOPROLOL TARTRATE 50 MG TAB PO SCH ×2 (10:03→20:21)
[2021-01-13] MEDS: LORAZEPAM 2 MG/ML 1 ML VIAL IVP PRN ×4 (10:09→20:22)
[2021-01-13 11:57] VITALS: BP 173/112
[2021-01-13] MEDS ORDERED: MAGNESIUM 2GM PREMIX 50ML 50 ML IV PRN (13:15)
[2021-01-13 16:00] VITALS: BP 163/114
[2021-01-13 19:38] VITALS: BP 159/113
[2021-01-14 10:13] LABS: HEPATITIS B CORE IGM Negative (Negative); HEPATITIS Bs ANTIGEN SCREEN P Negative (Negative)
== END 2021-01-13 22:00 | disposition left against medical advice (07) | DRG 442 ==
LOC: EDH 20:02 → EDHIP 20:03 → 4BH 01-13 06:19
PROVIDERS: ADMIT Internal Medicine; ATTEND Internal Medicine
DX: K72.00 Acute and subacute hepatic failure without coma (principal); N17.9 Acute kidney failure, unspecified; F10.239 Alcohol dependence with withdrawal, unspecified; D69.6 Thrombocytopenia, unspecified; Z83.3 Family history of diabetes mellitus; I10 Essential (primary) hypertension; K21.9 Gastro-esophageal reflux disease without esophagitis; R07.9 Chest pain, unspecified
CPT/HCPCS: 36415; 80053; 80074; 80305; 81001; 82550; 83036; 83735; 84100; 84484; 85025; G0378; J2060; J2405; J3411; J3475; J3490; J7030